=== PATIENT | female | born 1960 | race Caucasian/White ===

== ENCOUNTER 2020-06-25 07:33 | Outpatient (REF) | payer OTHER, SELFPAY | END 2020-06-25 07:34 | disposition home or self-care (01) | LOC: HO.MAMMO 07:33 | PROVIDERS: PCP Nurse Practitioner Family; Visit Provider Nurse Practitioner Family | DX: Z13.89 Encounter for screening for other disorder (principal) ==

== ENCOUNTER 2020-07-22 10:41 | Outpatient (REF) | payer OTHER, SELFPAY ==
--- NOTE | ~2020-07-22 | MM_ITS ---
EXAMINATION: MM DIAGNOSTIC DIGITAL BREAST TOMOSYNTHESIS, BILATERAL US DIAGNOSTIC ULTRASOUND BREAST, BILATERAL CLINICAL INFORMATION: Prior history bilateral implants, placed prior to 2018 exam. Patient notes palpable firm sensation around right implant. Patient also notes looseness on left, concern for implant rupture. Due for yearly. No known family history breast cancer. The lifetime risk of breast cancer based on the Tyrer-Cuzick Model is 3%. COMPARISON: Mammography: 06/20/2019, 06/14/2018, 06/03/2017, 01/31/2012, 01/21/2012 TECHNIQUE: Digital mammography is performed in craniocaudal and mediolateral oblique views along with computer-aided detection (CAD). Digital breast tomosynthesis is performed in implant-displaced craniocaudal and implant-displaced mediolateral oblique views along with computer-aided detection (CAD). Synthesized 2D images are generated from the tomosynthesis. Ultrasound left breast is targeted to all 4 quadrants and retroareolar region. Ultrasound right breast is targeted to all 4 quadrants and retroareolar region. Grayscale imaging and color Doppler are performed without and with harmonics. FINDINGS: There are scattered areas of fibroglandular density (ACR BI-RADS breast composition Category b). There are bilateral silicone implants. The implant contours are similar to prior exams. The bilateral breast parenchymal pattern is similar to prior studies. There is no developing density or interval mass or architectural abnormality or abnormal calcifications. No skin thickening or coarsening of the Danny's ligaments. Ultrasound bilateral breasts show no cystic or solid mass, architectural abnormality, or focal duct ectasia. No skin thickening or edema tracking in soft tissue planes. Results are discussed with the patient at time of visit. Patient should be managed based on the clinical impression. If clinically indicated, further evaluation may be considered with surgical consult. Decision to proceed with biopsy should be based on clinical grounds and degree of clinical concern. If there is concern for integrity of the breast implants, MRI may be considered to assess for occult intracapsular rupture. MM/MM tomosynthesis diag imp BI IMPRESSION: There are no significant changes from prior study. ASSESSMENT: BI-RADS 1: Negative RECOMMENDATION: 1. Patient should be managed based on the clinical impression. If clinically indicated, further evaluation may be considered with surgical consult. Decision to proceed with biopsy should be based on clinical grounds and degree of clinical concern. 2. If there is concern for integrity of the breast implants, MRI may be considered to assess for occult intracapsular rupture. 3. Otherwise, routine annual screening mammography. This patient's information was entered into a reminder system with a target due date for their next mammogram.
== END 2020-07-22 10:42 | disposition home or self-care (01) ==
LOC: HO.MAMMO 10:41
PROVIDERS: PCP Nurse Practitioner Family; Visit Provider Nurse Practitioner Family
DX: N64.89 Other specified disorders of breast (principal); Z98.82 Breast implant status
CPT/HCPCS: 76641; 77062; 77066

== ENCOUNTER 2020-12-30 14:06 | Outpatient (REF) | payer OTHER, SELFPAY ==
[2020-12-30 14:59] LABS: Influenza A PCR NEGATIVE (Negative); Influenza B PCR NEGATIVE (Negative); Resp Syncy Virus RNA Qual PCR NEGATIVE (Negative); SARS COV2 PCR INHOUSE NEGATIVE (Negative)
== END 2020-12-30 14:07 | disposition home or self-care (01) ==
LOC: HO.LNP 14:06
PROVIDERS: Visit Provider Nurse Practitioner Family
DX: Z20.822 Contact with and (suspected) exposure to COVID-19 (principal); R09.81 Nasal congestion
CPT/HCPCS: 0241U

== ENCOUNTER 2021-07-28 15:33 | Outpatient (REF) | payer OTHER, SELFPAY ==
--- NOTE | ~2021-07-28 | MM_ITS ---
EXAMINATION: MM SCREENING DIGITAL BREAST TOMOSYNTHESIS, BILATERAL CLINICAL INFORMATION: Screening. No new symptoms. The lifetime risk of breast cancer based on the Tyrer-Cuzick Model is 5%. COMPARISON: Mammography: 07/22/2020, 06/20/2019, 06/14/2018 TECHNIQUE: Digital mammography is performed in craniocaudal and mediolateral oblique views along with computer-aided detection (CAD). Digital breast tomosynthesis is performed in implant-displaced craniocaudal and implant-displaced mediolateral oblique views along with computer-aided detection (CAD). Synthesized 2D images are generated from the tomosynthesis. FINDINGS: There are scattered areas of fibroglandular density (ACR BI-RADS breast composition Category b). The implant contours are similar to prior studies. Mild focal convexity superior right implant on MLO view is stable. Parenchymal pattern is similar to prior exams. No interval mass or architectural abnormality. No abnormal calcifications. The skin contours are smooth. No significant changes. MM/MM tomosynthesis screen imp BI IMPRESSION: No mammographic evidence of malignancy. ASSESSMENT: BI-RADS 2: Benign RECOMMENDATION: Routine annual mammography screening. This patient's information was entered into a reminder system with a target due date for their next mammogram.
== END 2021-07-28 15:34 | disposition home or self-care (01) ==
LOC: HO.MAMMO 15:33
PROVIDERS: PCP Nurse Practitioner Family; Visit Provider Nurse Practitioner Family
DX: Z12.31 Encounter for screening mammogram for malignant neoplasm of breast (principal)
CPT/HCPCS: 77063; 77067

== ENCOUNTER 2022-09-19 07:22 | Outpatient (REF) | payer OTHER, SELFPAY ==
--- NOTE | ~2022-09-19 | MM_ITS ---
EXAMINATION: MM SCREENING DIGITAL BREAST TOMOSYNTHESIS, BILATERAL CLINICAL INFORMATION: Screening. Asymptomatic. The lifetime risk of breast cancer based on the Tyrer-Cuzick Model is 4%. COMPARISON: Mammography: 07/28/2021, 07/22/2020, 06/20/2019 TECHNIQUE: Digital mammography is performed in craniocaudal and mediolateral oblique views along with computer-aided detection (CAD). Digital breast tomosynthesis is performed in implant-displaced craniocaudal and implant-displaced mediolateral oblique views along with computer-aided detection (CAD). Synthesized 2D images are generated from the tomosynthesis. FINDINGS: There are scattered areas of fibroglandular density (ACR BI-RADS breast composition Category b). There are no significant masses, abnormal calcifications, or other abnormalities. No architectural abnormality or developing density or significant change from prior studies. Bilateral implants are present with contours similar to prior studies. The axilla and skin contours are unremarkable. MM/MM tomosynthesis screen imp BI IMPRESSION: No mammographic evidence of malignancy. ASSESSMENT: BI-RADS 2: Benign RECOMMENDATION: Routine annual mammography screening. This patient's information was entered into a reminder system with a target due date for their next mammogram.
== END 2022-09-19 07:23 | disposition home or self-care (01) ==
LOC: HO.MAMMO 07:22
PROVIDERS: PCP Nurse Practitioner Family; Visit Provider Nurse Practitioner Family
DX: Z12.31 Encounter for screening mammogram for malignant neoplasm of breast (principal)
CPT/HCPCS: 77063; 77067

== ENCOUNTER 2023-12-18 07:12 | Outpatient (REF) | payer OTHER, SELFPAY ==
--- NOTE | ~2023-12-18 | MM_ITS ---
EXAMINATION: MM SCREENING DIGITAL BREAST TOMOSYNTHESIS, BILATERAL CLINICAL INFORMATION: Screening. Asymptomatic. COMPARISON: Mammography: TECHNIQUE: Digital mammography is performed in craniocaudal and mediolateral oblique views along with computer-aided detection (CAD). Digital breast tomosynthesis is performed in implant-displaced craniocaudal and implant-displaced mediolateral oblique views along with computer-aided detection (CAD). Synthesized 2D images are generated from the tomosynthesis. FINDINGS: The breasts are heterogeneously dense, which may obscure small masses (ACR BI-RADS breast composition Category c). Bilateral retropectoral silicone implants are stable appearing. There are no significant masses, abnormal calcifications, or other abnormalities. MM/MM tomosynthesis screen imp BI IMPRESSION: There are no significant changes from prior study. ASSESSMENT: BI-RADS BI-RADS 2 - Benign Findings RECOMMENDATION: Routine annual mammography screening. 1 year F/U This patient's information was entered into a reminder system with a target due date for their next mammogram. Electronically signed by: Mague Rosenthal DO 12/31/2023 01:36 PM EDT
== END 2023-12-18 07:13 | disposition home or self-care (01) ==
LOC: HO.MAMMO 07:12
PROVIDERS: PCP Nurse Practitioner Family; Visit Provider Nurse Practitioner Family
DX: Z12.31 Encounter for screening mammogram for malignant neoplasm of breast (principal)
CPT/HCPCS: 77063; 77067

== ENCOUNTER → 2023-12-18 07:45 | Outpatient (BNV) | payer OTHER, SELFPAY | PROVIDERS: PCP Nurse Practitioner Family; Visit Provider Internal Medicine | DX: Z12.31 Encounter for screening mammogram for malignant neoplasm of breast (principal) | CPT/HCPCS: 77063; 77067 ==

== ENCOUNTER 2024-10-02 17:40 | Emergency (ER) | payer OTHER, SELFPAY ==
--- NOTE | ~2024-10-02 | XR_ITS ---
CLINICAL HISTORY: pain to dorsal foot Left foot three views Comparison: None provided Findings: No acute fracture or dislocation identified. Mild degenerative change multiple joints. Old distal 5th metatarsal fracture. No radiopaque foreign body noted. Impression: No acute bony abnormality This document has been electronically signed by: Marciano Cruz MD on 10/02/2024 19:33:28
--- NOTE | ~2024-10-02 | XR_ITS ---
CLINICAL HISTORY: pain to dorsal foot ankle Left ankle three views Comparison: None provided Findings: No acute fracture or dislocation identified. Degenerative change tibiotalar joint. No radiopaque foreign body noted. Impression: No acute bony abnormality This document has been electronically signed by: Marciano Cruz MD on 10/02/2024 19:37:04
[2024-10-02 18:08] VITALS: BP 129/67; PULSE 86; RESP 16; TEMP 36.8; O2SAT 96; BMI 29.6
--- NOTE | 2024-10-02 18:11 | ED_ITS ---
HPI - Extremity Injury (Lower) General Chief Complaint: Extremity Injury, Lower Stated Complaint: left foot pain wants xray Time Seen by Provider: 10/02/24 18:48 Source: patient Limitations: no limitations History of Present Illness ED Provider: Malathi Osorio PA-C HPI Narrative: 64-year-old female presents with left foot pain x1 month. No preceding trauma, that the patient can recall. Pain most focal over lateral/anterior ankle with radiation across the joint. Denies inability to flex and extend from the ankle, no redness no swelling no fever Related Data Previous Rx's ?Medication ?Instructions ?Recorded albuterol sulfate 90 mcg/actuation 1 inh inhalation Q6 H PRN shortness 12/30/20 aerosol inhaler of breath or wheezing #6.7 g tom methylprednisolone 4 mg tablets in 4 mg PO QAM #21 ea 10/02/24 a dose pack (Medrol (Glenn)) Allergies Allergy/AdvReac Type Severity Reaction Status Date / Time cortisone (CORTISONE) Allergy Severe VISION Verified 10/02/24 18:09 PROBLEMS codeine (CODEINE) Allergy Mild GI UPSET Verified 10/02/24 18:09 ibuprofen (IBUPROFEN) Allergy Mild GI UPSET Verified 10/02/24 18:09 oxycodone (From OXYCONTIN) Allergy Unknown HALLUCIANTI Verified 10/02/24 18:09 ONS Steroids Allergy Unknown they Uncoded 03/29/17 00:00 conflict with eye issue patient has Codeine Sulfate AdvReac Unknown nausea Uncoded 03/29/17 00:00 Review of Systems Review of Systems: Yes all other systems are reviewed and are negative Constitutional: Constitutional: Denies fatigue and Denies fever(s) Musculoskeletal: Musculoskeletal: Reports arthralgias and Denies joint swelling Integumentary/Breasts: Skin/Breast: Denies erythema Endocrine: Endocrine: Denies fatigue PMFSH Past Medical History Attestation statement: The following information was validated with the patient. Social History Social History Advance Directives: No Advance Directives Information Provided: Yes Do you have a plan to hurt others: No Plan Physical Exam Vital Signs: Vital Signs: Last Vital Signs Temp 98.3 F 10/02/24 18:08 Pulse 86 10/02/24 18:08 Resp 16 10/02/24 18:08 BP 129/67 10/02/24 18:08 Pulse Ox 96 10/02/24 18:08 O2 Del Method Room Air 10/02/24 18:08 BMI result Body Mass Index 29.6 Const: Other: Alert well-appearing Orientation/consciousness: patient oriented x3 Resp: Effort & Inspection: normal respiratory effort Cardio: Other: Normal peripheral perfusion Skin: Other: Warm dry no rash Neuro: General: patient oriented x3, no focal motor deficits and CN's II-XI intact bilaterally Extrem: Other: Able to flex and extend from the left ankle no overlying erythema or warmth no swelling no deformity, Course Course Course Narrative: 10/02/241810 SHAKILA Gallardo This is a Rapid Medical Examination (RME) performed by Ko Martin PA-C in triage. Full HPI, ROS, assessment and treatment plan per primary provider in the Main ED. Hx: 64 yo F here w/ atraumatic L foot pain. pain localized to dorsal aspect of foot, worse w/ ambulating. sharp in character. No injury or trauma. Attempted to establish care with Podiatry however was unable to. Plan: xrs Medications Administered Discontinued Medications Generic Name Dose Route Start Last Admin Trade Name Freq PRN Reason Stop Dose Admin Ketorolac Tromethamine 15 mg 10/02/24 19:20 10/02/24 19:31 Ketorolac Tromethamine 15 Mg/Ml Vial IM 10/02/24 19:21 15 mg ONCE ONE Administration Prednisone 10 mg 10/02/24 19:49 10/02/24 19:57 Prednisone 10 Mg Tablet PO 10/02/24 19:50 10 mg ONCE ONE Administration Medical Decision Making Medical Decision Making [facility] Narrative: 64-year-old female presents with left foot pain x1 month. No preceding trauma, that the patient can recall. Pain most focal over lateral/anterior ankle with radiation across the joint. Denies inability to flex and extend from the ankle, no redness no swelling no fever No underlying chronic issues History: Per patient I have considered the following differential diagnoses: Arthritis, fracture, dislocation, septic arthritis, gout Plan: X-rays obtained from triage the patient has considerable arthritic changes, we will send with a Medrol Dosepak and follow up with the ortho. There were no exam findings consistent with a septic arthritis or gout. No indication for labs. I have independently reviewed the following tests: X-ray ankle: Findings: No acute fracture or dislocation identified. Degenerative change tibiotalar joint. No radiopaque foreign body noted. Impression: No acute bony abnormality X-ray foot:Left foot three views Comparison: None provided Findings: No acute fracture or dislocation identified. Mild degenerative change multiple joints. Old distal 5th metatarsal fracture. No radiopaque foreign body noted. Impression: No acute bony abnormality Discharge Plan Discharge Clinical Impression: Osteoarthritis of foot, left Patient Disposition: Home, Self-Care Instructions: Osteoarthritis (ED) Additional Instructions: You were found to have significant arthritis of multiple joints in the left foot and ankle. Some of the arthritic changes involve the tibiotalar joint. I am providing with a contact for our orthopedic service, you can follow up with them to discuss the need for a cortisone injection. In the meantime, use the Medrol Dosepak as directed. Prescriptions: New methylprednisolone [Medrol (Glenn)] 4 mg tablets,dose pack 4 mg PO QAM Qty: 21 0RF Rx Instructions: Take per package instructions No Action albuterol sulfate 90 mcg/actuation HFA aerosol inhaler 1 inh inhalation Q6H PRN (Reason: shortness of breath or wheezing) Qty: 6.7 1RF Referrals: Ignacio Cordero MD [Physician, Orthopedics] Referral Note: arthritis left foot/ankle Print Language: Hungarian
[2024-10-02] MEDS: Ketorolac Tromethamine 15 MG/ML VIAL IM (19:31)
--- NOTE | 2024-10-02 19:42 | PC.NURSE ---
PT medicated as per JUN. IM in L deltoid. PT tolerated well. Effectiveness pending
[2024-10-02] MEDS: predniSONE 10 MG TABLET PO (19:57)
[2024-10-02 20:21] VITALS: BP 106/59; PULSE 74; RESP 16; TEMP 36.4; O2SAT 96
== END 2024-10-02 20:22 | disposition home or self-care (01) ==
PROVIDERS: Emergency Provider Emergency Medicine Emergency Medical Services
DX: M19.072 Primary osteoarthritis, left ankle and foot (principal); M79.672 Pain in left foot
CPT/HCPCS: 73610; 73630; 96372; 99283; 99284; J1885

== ENCOUNTER → 2024-10-02 18:10 | Outpatient (BNV) | payer OTHER, SELFPAY | PROVIDERS: Visit Provider Radiology Diagnostic Radiology | DX: M25.572 Pain in left ankle and joints of left foot (principal) | CPT/HCPCS: 73610; 73630 ==

== ENCOUNTER 2024-12-25 09:29 | Outpatient (REF) | payer OTHER, SELFPAY ==
--- NOTE | ~2024-12-25 | MM_ITS ---
EXAMINATION: MM SCREENING DIGITAL BREAST TOMOSYNTHESIS, BILATERAL CLINICAL INFORMATION: Screening. Asymptomatic. COMPARISON: Comparison made to multiple prior, most recent December 18, 2023, and most remote July 22, 2020. TECHNIQUE: Digital breast tomosynthesis is performed in mediolateral oblique and craniocaudal views along with computer-aided detection (CAD). Synthesized 2D images are generated from the tomosynthesis. Images with implants and displaced implant views were obtained. FINDINGS: BREAST COMPOSITION: The breasts are heterogeneously dense, which may obscure small masses (ACR BI-RADS breast composition Category c). RIGHT BREAST: Retropectoral silicone implant is in place. Focal bulging in the superior contour of the implant on the MLO view is similar to prior studies as far back as at least 2020. No significant masses, suspicious calcifications or other abnormalities are seen. LEFT BREAST: Retropectoral silicone implant appears intact. No significant masses, suspicious calcifications or other abnormalities are seen. MM/MM tomosynthesis screen imp BI IMPRESSION: BILATERAL BREASTS: Benign, no mammographic evidence of malignancy. Normal interval follow-up is recommended in 12 months. ASSESSMENT: BI-RADS 2 - Benign Findings RECOMMENDATION: Routine annual mammography screening. FOLLOW-UP: 1 year F/U This examination should not preclude the clinical evaluation of a suspicious palpable abnormality. This patient's information was entered into a reminder system with a target due date for their next mammogram. Electronically signed by: Toyin Hassan MD 12/28/2024 09:04 AM EDT Workstation: [id number]
== END 2024-12-25 09:30 | disposition home or self-care (01) ==
LOC: HO.MAMMO 09:29
PROVIDERS: PCP Nurse Practitioner Family; Visit Provider Nurse Practitioner Family
DX: Z12.31 Encounter for screening mammogram for malignant neoplasm of breast (principal)
CPT/HCPCS: 77063; 77067

== ENCOUNTER → 2024-12-25 09:45 | Outpatient (BNV) | payer OTHER, SELFPAY | PROVIDERS: PCP Nurse Practitioner Family; Visit Provider Radiology Body Imaging | DX: Z12.31 Encounter for screening mammogram for malignant neoplasm of breast (principal) | CPT/HCPCS: 77063; 77067 ==